=== PATIENT | female | born 2000 | race Two or more races ===

== ENCOUNTER 2022-03-13 17:28 | Emergency (ER) | payer BC, MEDICAID ==
[~2022-03-13] VITALS: Ht 157.5 cm; Wt 74.8 kg
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
--- NOTE | 2022-03-13 18:13 | NUR ---
DR SILVA AT BEDSIDE FOR EVAL
--- NOTE | 2022-03-13 18:30 | NUR ---
PER [facility]OL THE PATIENT GO BACK TO [facility] UPON DISCHARGE.
[2022-03-13] MEDS ORDERED: ACETAMINOPHEN 325 MG TABLET PO ONE (19:00)
--- NOTE | 2022-03-13 19:03 | NUR ---
URINE COLLECTED AND SENT TO THE LAB
[2022-03-13] MEDS ORDERED: ACETAMINOPHEN 325 MG TABLET ONE (19:10)
--- NOTE | 2022-03-13 22:09 | NUR ---
PT IS MEDICALLY CLEARED TO GO BACK TO [facility] FOR CONTINUATION OF HER TREATMENT. CALLED THE FACILITY NURSING SALES [facility] TO INFORM THTA SHE IS CLEARED TO GO BACK. REPORT WAS GIVEN WELL. SPOKE WITH COLIN PONCE
--- NOTE | 2022-03-13 22:11 | NUR ---
[facility] CALLED FOR BLS TO [facility] ETA- 90 MIN/2 HOURS
--- NOTE | 2022-03-13 23:40 | NUR ---
CLINICALS FAXED TO [facility] AT [phone] PER THEIR REQUEST.
--- NOTE | 2022-03-13 23:47 | NUR ---
[facility] 300 AT BEDSIDE FOR PT TRANSPORT BACK TO [facility]. PT IS IN STABLE CONDITION FOR TRANSPORT. REPORT GIVEN.
[2022-03-13 23:50] VITALS: BP 136/85
--- NOTE | 2022-03-13 23:51 | NUR ---
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
== END 2022-03-13 23:51 | disposition home or self-care (01) ==
LOC: ER 17:42
DX: S00.11XA Contusion of right eyelid and periocular area, initial encounter (principal); F32.9 Major depressive disorder, single episode, unspecified; Y04.8XXA Assault by other bodily force, initial encounter; Y93.89 Activity, other specified; Y92.89 Other specified places as the place of occurrence of the external cause; Y99.8 Other external cause status
CPT/HCPCS: 70450-TC; 70486-TC; 84703-TC